=== PATIENT | male | born 1975 | race Caucasian/White ===

== ENCOUNTER → 2017-03-21 | Outpatient (REF) | LOC: WSOH 08:11 | DX: Z00.00 Encounter for general adult medical examination without abnormal findings (principal) ==

== ENCOUNTER 2018-04-14 21:42 | Emergency (ER) | payer OTHER ==
[~2018-04-14] VITALS: Ht 175.3 cm; Wt 122.7 kg
[2018-04-14 21:52] VITALS: TEMP 98.8
[2018-04-14 22:22] LABS: BASO # 0.1 (0.0-0.2); BASO % 0.6 % (0.0-2.0); EOS # 0.1 (0.0-0.7); EOS % 1.4 % (0-4.0); GRAN # 6.9 (1.4-6.5); HEMATOCRIT 40.5 % (42.0-52.0); HEMOGLOBIN 13.6 g/dl (13.5-18.0); LYMPH # 2.3 (1.2-3.4); LYMPH % 22.8 % (20.0-51.0); MEAN CELL VOLUME 83 fl (80.0-100.0); MEAN CORPUSCULAR HEMOGLOBIN 28 pg (27.0-31.0); MEAN CORPUSCULAR HGB CONC 34 g/dl (33.0-37.0); MEAN PLATELET VOLUME 9.6 fl (7.4-10.4); MONO # 0.7 (0.1-0.6); MONO % 6.9 % (1.7-9.3); PLATELET COUNT 268 K/mm3 (130-400); RED BLOOD COUNT 4.91 M/mm3 (4.20-5.60); REDCELL DISTRIBUTION WIDTH-CV 13.6 % (11.5-14.5)
[2018-04-14 22:31] LABS: ALANINE AMINOTRANSFERASE 46 U/L (21-72); ALBUMIN 3.9 gm/dL (3.5-5.0); ALKALINE PHOSPHATASE 80 U/L (50-136); ANION GAP 11 mmol/L (7-16); AST,SGOT 23 U/L (15-37); BILIRUBIN,TOTAL 0.3 mg/dL (0.0-1.0); BLOOD UREA NITROGEN 16 mg/dL (9-20); CALCIUM 8.7 mg/dL (8.4-10.2); CARBON DIOXIDE 26 mmol/L (22-30); CHLORIDE 103 mmol/L (98-107); CREATININE, serum 0.95 mg/dL (0.66-1.25); GLUCOSE 111 mg/dL (74-106); POTASSIUM 3.8 mmol/L (3.4-5.0); SODIUM 140 mmol/L (137-145)
[2018-04-14 22:44] LABS: TROPONIN-I < 0.012 ng/mL (0.000-0.034)
[2018-04-15] MEDS ORDERED: FLEXERIL 1010 MG/TAB PO (00:20)
[2018-04-15 01:15] VITALS: BP 133/74; PULSE 86
== END 2018-04-15 01:15 | disposition home or self-care (01) ==
LOC: COL.ER 21:42
PROVIDERS: Emergency Medicine
DX: R07.81 Pleurodynia (principal); I10 Essential (primary) hypertension; E66.9 Obesity, unspecified; Z68.39 Body mass index [BMI] 39.0-39.9, adult; Z87.891 Personal history of nicotine dependence; Z90.89 Acquired absence of other organs; F32.9 Major depressive disorder, single episode, unspecified
CPT/HCPCS: J1885; J7030

== ENCOUNTER 2019-12-04 23:46 | Emergency (ER) | payer OTHER ==
[~2019-12-04] VITALS: Ht 175.3 cm; Wt 127.3 kg
[~2019-12-04 23:46] MED LIST: FLEXERIL 1010 MG/TAB PO
[2019-12-04 23:58] VITALS: BP 172/99; PULSE 91; TEMP 98.8
[2019-12-05] MEDS ORDERED: COZAAR 50MG50 MG/TAB PO (00:12)
[2019-12-05] MEDS ORDERED: MOBIC 7.5MG7.5 MG PO (00:13)
[2019-12-05] MEDS ORDERED: ADDERALL XR20 MG PO (00:13)
[2019-12-05] MEDS ORDERED: PEN-VEE K500 MG PO (00:14)
[2019-12-05] MEDS ORDERED: NORCO 325 MG-51 TAB PO (00:14)
[2019-12-05] MEDS ORDERED: LEXAPRO20 MG PO (00:15)
== END 2019-12-05 00:29 | disposition home or self-care (01) ==
LOC: COL.ER 23:46
DX: K02.9 Dental caries, unspecified (principal); I10 Essential (primary) hypertension

== ENCOUNTER 2020-01-10 13:53 | Emergency (ER) | payer OTHER ==
[~2020-01-10] VITALS: Ht 172.7 cm; Wt 131.8 kg
[~2020-01-10 13:53] MED LIST changes: +ADDERALL XR20 MG PO; +COZAAR 50MG50 MG/TAB PO; +LEXAPRO20 MG PO; +MOBIC 7.5MG7.5 MG PO; +NORCO 325 MG-51 TAB PO; +PEN-VEE K500 MG PO
[2020-01-10 14:15] VITALS: TEMP 98.2
[2020-01-10] MEDS ORDERED: COZAAR 50MG50 MG/TAB PO ×2 (14:18→18:09)
[2020-01-10 14:27] LABS: BASO # 0.1 (0.0-0.2); BASO % 0.8 % (0.0-2.0); EOS # 0.2 (0.0-0.7); EOS % 2.2 % (0-4.0); GRAN # 6.5 (1.4-6.5); GRAN % 64.1 % (42.2-75.2); HEMATOCRIT 47.6 % (42.0-52.0); LYMPH # 2.7 (1.2-3.4); LYMPH % 26.2 % (20.0-51.0); MEAN CELL VOLUME 82 fl (80.0-100.0); MEAN CORPUSCULAR HEMOGLOBIN 28 pg (27.0-31.0); MEAN CORPUSCULAR HGB CONC 34 g/dl (33.0-37.0); MEAN PLATELET VOLUME 9.8 fl (7.4-10.4); MONO # 0.6 (0.1-0.6); MONO % 6.3 % (1.7-9.3); PLATELET COUNT 335 K/mm3 (130-400); RED BLOOD COUNT 5.78 M/mm3 (4.20-5.60); REDCELL DISTRIBUTION WIDTH-CV 12.9 % (11.5-14.5)
[2020-01-10 14:34] LABS: ALANINE AMINOTRANSFERASE 40 U/L (4-49); ALBUMIN 4.6 gm/dL (3.5-5.0); ALKALINE PHOSPHATASE 134 U/L (50-136); ANION GAP 11 mmol/L (7-16); AST,SGOT 31 U/L (15-37); BILIRUBIN,TOTAL 0.6 mg/dL (0.0-1.0); BLOOD UREA NITROGEN 13 mg/dL (9-20); CALCIUM 9.2 mg/dL (8.4-10.2); CARBON DIOXIDE 23 mmol/L (22-30); CHLORIDE 103 mmol/L (98-107); CREATININE, serum 0.77 (0.66-1.25); GLUCOSE 113 mg/dL (74-106); POTASSIUM 4.5 mmol/L (3.4-5.0); SODIUM 138 mmol/L (137-145); TOTAL PROTEIN 8.4 gm/dL (6.4-8.2)
[2020-01-10 14:51] LABS: TROPONIN-I < 0.012 ng/mL (0.000-0.035)
[2020-01-10 18:25] VITALS: BP 123/87; PULSE 62
== END 2020-01-10 18:30 | disposition home or self-care (01) ==
LOC: COL.ER 13:53
PROVIDERS: Nurse Practitioner
DX: I10 Essential (primary) hypertension (principal); R07.89 Other chest pain; Z91.14 Patient's other noncompliance with medication regimen
CPT/HCPCS: J7030

== ENCOUNTER 2020-11-08 10:33 | Emergency (ER) | payer OTHER ==
[~2020-11-08] VITALS: Ht 172.7 cm; Wt 134.1 kg
[2020-11-08 10:39] VITALS: TEMP 98.2
[2020-11-08 11:02] LABS: BASO # 0.1 (0.0-0.2); BASO % 0.8 % (0.0-2.0); EOS # 0.2 (0.0-0.7); EOS % 2.1 % (0-4.0); GRAN # 6.3 (1.4-6.5); GRAN % 70.1 % (42.2-75.2); HEMATOCRIT 47.3 % (42.0-52.0); HEMOGLOBIN 15.4 g/dl (13.5-18.0); LYMPH # 1.8 (1.2-3.4); LYMPH % 20.1 % (20.0-51.0); MEAN CELL VOLUME 84 fl (80.0-100.0); MEAN CORPUSCULAR HEMOGLOBIN 27 pg (27.0-31.0); MEAN CORPUSCULAR HGB CONC 33 g/dl (33.0-37.0); MEAN PLATELET VOLUME 9.5 fl (7.4-10.4); MONO # 0.6 (0.1-0.6); MONO % 6.5 % (1.7-9.3); PLATELET COUNT 329 K/mm3 (130-400); RED BLOOD COUNT 5.66 M/mm3 (4.20-5.60); REDCELL DISTRIBUTION WIDTH-CV 13.1 % (11.5-14.5)
[2020-11-08 11:13] LABS: ALANINE AMINOTRANSFERASE 31 U/L (4-49); ALBUMIN 4.5 gm/dL (3.5-5.0); ALKALINE PHOSPHATASE 117 U/L (50-136); ANION GAP 7 mmol/L (7-16); AST,SGOT 28 U/L (15-37); BILIRUBIN,TOTAL 0.3 mg/dL (0.0-1.0); BLOOD UREA NITROGEN 13 mg/dL (9-20); CALCIUM 8.9 mg/dL (8.4-10.2); CARBON DIOXIDE 29 mmol/L (22-30); CHLORIDE 102 mmol/L (98-107); CREATININE, serum 0.95 (0.66-1.25); GLUCOSE 100 mg/dL (74-106); POTASSIUM 4.6 mmol/L (3.4-5.0); SODIUM 139 mmol/L (137-145); TOTAL PROTEIN 8.5 gm/dL (6.4-8.2)
[2020-11-08 11:25] LABS: TROPONIN-I < 0.012 ng/mL (0.000-0.035)
[2020-11-08] MEDS ORDERED: COZAAR 50MG50 MG/TAB PO (13:09)
[2020-11-08 14:43] VITALS: BP 131/89; PULSE 114
== END 2020-11-08 14:53 | disposition home or self-care (01) ==
LOC: COL.ER 10:33
PROVIDERS: Physician Assistant
DX: I16.1 Hypertensive emergency (principal); R07.9 Chest pain, unspecified; I10 Essential (primary) hypertension; Z90.89 Acquired absence of other organs; Z82.49 Family history of ischemic heart disease and other diseases of the circulatory system
CPT/HCPCS: J0360; J1885; J2060; J2765; J7030

== ENCOUNTER 2023-10-10 19:04 | Emergency (ER) | payer OTHER ==
[~2023-10-10] VITALS: Ht 172.7 cm; Wt 109.1 kg
[~2023-10-10 19:04] MED LIST changes: +DRAMAMINE LESS25 MG PO
[2023-10-10 19:08] VITALS: TEMP 97.7
[2023-10-10 19:46] LABS: BASO # 0.1 K/mm3 (0.0-0.2); BASO % 0.5 % (0.0-2.0); EOS # 0.2 K/mm3 (0.0-0.7); EOS % 1.7 % (0.0-4.0); GRAN # 6.1 K/mm3 (1.4-6.5); GRAN % 66.6 % (42.2-75.2); HEMATOCRIT 42.5 % (42.0-52.0); LYMPH # 2.2 K/mm3 (1.2-3.4); MEAN CELL VOLUME 86 fl (80.0-100.0); MEAN CORPUSCULAR HEMOGLOBIN 28 pg (27-31); MEAN CORPUSCULAR HGB CONC 33 g/dl (33.0-37.0); MEAN PLATELET VOLUME 9.6 fl (7.4-10.4); MONO # 0.6 K/mm3 (0.1-0.6); MONO % 6.9 % (1.7-9.3); PLATELET COUNT 289 K/mm3 (130-400); RED BLOOD COUNT 4.96 M/mm3 (4.20-5.60); REDCELL DISTRIBUTION WIDTH-CV 13.4 % (11.5-14.5)
[2023-10-10 19:49] LABS: INR 0.9 (0.8-3.0); PROTHROMBIN TIME 9.6 SECONDS (9.7-12.8)
[2023-10-10 19:56] LABS: ALANINE AMINOTRANSFERASE 33 U/L (0-55); ALBUMIN 3.8 gm/dL (3.5-5.0); ALKALINE PHOSPHATASE 102 U/L (40-150); ANION GAP 12 mmol/L (7-16); AST,SGOT 20 U/L (5-34); BILIRUBIN,TOTAL 0.3 mg/dL (0.2-1.2); BLOOD UREA NITROGEN 16 mg/dL (9-21); C-REACTIVE PROTEIN 2.14 mg/dL (0.00-0.50); CALCIUM 9.5 mg/dL (8.4-10.2); CARBON DIOXIDE 22 mmol/L (22-29); CHLORIDE 106 mmol/L (98-107); GLUCOSE 102 mg/dL (70-99); LIPASE 30 U/L (8-78); SODIUM 140 mmol/L (136-145); TOTAL PROTEIN 7.3 gm/dL (6.2-8.1)
[2023-10-10 20:05] LABS: TROPONIN-I < 0.010 ng/mL (0.00-0.033)
[2023-10-10] MEDS ORDERED: Iohexol 350 - 100 ML VIAL IV ONE (20:27)
[2023-10-10] MEDS ORDERED: NS 50 ML IV ONE (20:31)
[2023-10-10 23:26] VITALS: BP 141/97; PULSE 79
== END 2023-10-10 23:26 | disposition home or self-care (01) ==
LOC: COL.ER 19:04
PROVIDERS: Nurse Practitioner Primary Care
DX: R07.89 Other chest pain (principal); R79.89 Other specified abnormal findings of blood chemistry; E66.9 Obesity, unspecified; Z87.891 Personal history of nicotine dependence; Z68.36 Body mass index [BMI] 36.0-36.9, adult
CPT/HCPCS: Q9967

== ENCOUNTER 2023-10-29 13:56 | Emergency (ER) | payer OTHER ==
[~2023-10-29] VITALS: Ht 172.7 cm; Wt 131.8 kg
[2023-10-29 14:22] VITALS: TEMP 98
[2023-10-29 16:27] LABS: BASO # 0.1 K/mm3 (0.0-0.2); BASO % 0.6 % (0.0-2.0); EOS # 0.2 K/mm3 (0.0-0.7); EOS % 2.5 % (0.0-4.0); GRAN # 4.9 K/mm3 (1.4-6.5); GRAN % 62.9 % (42.2-75.2); HEMATOCRIT 43.4 % (42.0-52.0); HEMOGLOBIN 14.5 g/dl (13.5-18.0); LYMPH % 25.3 % (20.0-51.0); MEAN CELL VOLUME 84 fl (80.0-100.0); MEAN CORPUSCULAR HEMOGLOBIN 28 pg (27-31); MEAN CORPUSCULAR HGB CONC 33 g/dl (33.0-37.0); MEAN PLATELET VOLUME 9.5 fl (7.4-10.4); MONO # 0.7 K/mm3 (0.1-0.6); MONO % 8.4 % (1.7-9.3); PLATELET COUNT 299 K/mm3 (130-400); RED BLOOD COUNT 5.14 M/mm3 (4.20-5.60)
[2023-10-29 16:46] LABS: ALBUMIN 3.9 gm/dL (3.5-5.0); BILIRUBIN,TOTAL 0.4 mg/dL (0.2-1.2); CALCIUM 9.9 mg/dL (8.4-10.2); POTASSIUM 3.8 mmol/L (3.5-4.5); TOTAL PROTEIN 7.6 gm/dL (6.2-8.1)
[2023-10-29 17:28] VITALS: BP 113/92; PULSE 96
== END 2023-10-29 17:35 | disposition home or self-care (01) ==
LOC: COL.ER 13:56
PROVIDERS: Family Medicine
DX: R42 Dizziness and giddiness (principal)

== ENCOUNTER 2024-02-06 22:36 | Emergency (ER) | payer OTHER ==
[~2024-02-06] VITALS: Ht 170.2 cm; Wt 138.6 kg
[2024-02-06 22:56] VITALS: TEMP 98.5
[2024-02-07] MEDS ORDERED: CRUTCHES MC (02:50)
[2024-02-07 02:58] VITALS: BP 128/80; PULSE 76
== END 2024-02-07 02:58 | disposition home or self-care (01) ==
LOC: COL.ER 22:36
DX: S80.212A Abrasion, left knee, initial encounter (principal); W08.XXXA Fall from other furniture, initial encounter
CPT/HCPCS: 31289; L1830; L1846